=== PATIENT | female | born 1980 | race Caucasian/White ===

== ENCOUNTER 2017-03-19 07:11 | Emergency (ER) | payer MEDICAID ==
[~2017-03-19] VITALS: Ht 154.9 cm; Wt 49.4 kg
[2017-03-19 07:14] VITALS: BP 108/76
== END 2017-03-19 08:33 | disposition home or self-care (01) ==
LOC: ED 07:11
DX: J02.9 Acute pharyngitis, unspecified (principal)
CPT/HCPCS: J8540

== ENCOUNTER 2017-09-22 10:04 | Emergency (ER) | payer MEDICAID ==
[~2017-09-22] VITALS: Ht 149.9 cm; Wt 49.5 kg
[2017-09-22 10:10] VITALS: BP 111/76
== END 2017-09-22 11:11 | disposition home or self-care (01) ==
LOC: ED 10:04
DX: N39.0 Urinary tract infection, site not specified (principal)

== ENCOUNTER 2019-12-29 20:49 | Emergency (ER) | payer MEDICAID ==
[~2019-12-29] VITALS: Ht 149.9 cm; Wt 54.4 kg
[2019-12-29 20:58] VITALS: Ht 149.9 cm; Wt 54.4 kg
[2019-12-30 02:32] VITALS: BP 129/83
== END 2019-12-30 01:37 | disposition home or self-care (01) ==
LOC: ED 20:49
DX: H66.91 Otitis media, unspecified, right ear (principal)

== ENCOUNTER 2020-01-16 14:42 | Emergency (ER) | payer MEDICAID ==
[~2020-01-16] VITALS: Ht 149.9 cm; Wt 52.6 kg
[2020-01-16 15:02] VITALS: Ht 149.9 cm; Wt 52.6 kg
[2020-01-16 16:00] VITALS: BP 121/71
== END 2020-01-16 16:00 | disposition home or self-care (01) ==
LOC: ED 14:42
DX: I88.9 Nonspecific lymphadenitis, unspecified (principal)